=== PATIENT | male | born 1955 | race Caucasian/White ===

== ENCOUNTER 2023-08-07 10:19 | Day surgery (SDC) | payer MEDICARE, SELFPAY ==
[2023-07-25 14:51] VITALS: BMI 31.6
--- NOTE | 2023-08-06 16:32 | PM.HPGS ---
History of Present Illness History of Present Illness Consent: Risks, benefits, and alternatives have been discussed and questions answered. Patient agrees to proceed with procedure. Chief complaint: Personal History of Polyps Narrative: Soto Mark is a 68 year old male who is referred for colon cancer screening. He had 2 polyps removed in 2016. Review of Systems Review of Systems: All systems reviewed & are unremarkable except as noted in HPI and below PMFSH Past Medical History Medical History Diabetes type 2, controlled Diverticulosis Hyperlipidemia Hypertension Surgical History Surgical History History of cervical spinal surgery History of cholecystectomy History of total bilateral knee replacement Social History Social History Smoking status: Former smoker Tobacco type: cigarettes Substance use: current Substance use type: marijuana Other substance usage details: CBD gummies Last use: seldom Living arrangements: with family Spiritual care concerns: No Meds Home Medications and Allergies Home Medications Medication Instructions Recorded Confirmed Type amlodipine 5 mg tablet 5 mg PO DAILY 07/25/23 08/07/23 History citalopram 40 mg tablet 40 mg PO DAILY 07/25/23 08/07/23 History glipizide 10 mg tablet, extended 10 mg PO DAILY 07/25/23 08/07/23 History release 24 hr hydrocodone 10 mg-acetaminophen 1 tablet PO TID PRN Pain 07/25/23 08/07/23 History 325 mg tablet insulin detemir U-100 100 unit/mL 80 unit subcut DAILY 07/25/23 08/07/23 History (3 mL) subcutaneous pen (Levemir FlexPen) losartan 100 mg tablet 100 mg PO DAILY 07/25/23 08/07/23 History meloxicam 15 mg tablet 15 mg PO DAILY 07/25/23 08/07/23 History Allergies Allergy/AdvReac Type Severity Reaction Status Date / Time iodine Allergy Mild Hives / Verified 08/07/23 11:10 Red Face Exam Resp: Auscultation: clear to auscultation bilaterally Cardio: Rate: regular rate Rhythm: regular rhythm GI: GI Palp: Yes Soft to palpation and No Tenderness to palpation present (GI) Assessment and Plan Assessment and plan (1) Personal history of colonic polyps: Code(s): Z86.010 - Personal history of colonic polyps Status: Acute Assessment and Plan: Colonoscopy with possible biopsy or polypectomy or cautery or injection of substances.
--- NOTE | 2023-08-07 07:26 | P.PNAN_ITS ---
Anes - Initial Pre Proc Eval Procedure: Operation Date: 08/07/23 12:30 Proposed Procedures p Diagnostic Colonoscopy - Homero Espinoza MD Date/Time: 08/07/23 07:26 Surgeon: Homero Espinoza MD Pre Op Diagnosis: Personal History of Polyps Patient Data Age: 68 Gender: M Height: 1.78 m Weight: 100 kg Allergies Allergy/AdvReac Type Severity Reaction Status Date / Time iodine Allergy Mild Hives / Verified 08/07/23 11:10 Red Face Home Medications Medication Instructions Recorded Confirmed Type amlodipine 5 mg tablet 5 mg PO DAILY 07/25/23 08/07/23 History citalopram 40 mg tablet 40 mg PO DAILY 07/25/23 08/07/23 History glipizide 10 mg tablet, extended 10 mg PO DAILY 07/25/23 08/07/23 History release 24 hr hydrocodone 10 mg-acetaminophen 1 tablet PO TID PRN Pain 07/25/23 08/07/23 History 325 mg tablet insulin detemir U-100 100 unit/mL 80 unit subcut DAILY 07/25/23 08/07/23 History (3 mL) subcutaneous pen (Levemir FlexPen) losartan 100 mg tablet 100 mg PO DAILY 07/25/23 08/07/23 History meloxicam 15 mg tablet 15 mg PO DAILY 07/25/23 08/07/23 History Patient hx anesthesia problems: none Family hx anesthesia problems: none Results Review: All pre-operative results and documents have been reviewed as part of the pre- operative evaluation. [facility] Past Medical History Medical History Diabetes type 2, controlled Diverticulosis Hyperlipidemia Hypertension Surgical History Surgical History History of cervical spinal surgery History of cholecystectomy History of total bilateral knee replacement Social History Social History Smoking status: Former smoker Tobacco type: cigarettes Substance use: current Substance use type: marijuana Other substance usage details: CBD gummies Last use: seldom Living arrangements: with family Spiritual care concerns: No Anes - Eval Final PreProcedure Day of Procedure 08/07/23 07:26 Patient weight: obese Heart: regular rate and rhythm Lungs: clear to auscultation Airway: Mallampati scale class II Neurological: alert and oriented Last oral intake: >/= 8 hours ASA classification: III Emergent: no Anesthetic plan: proceed Anesthesia type and monitoring: general GIVS and standard monitoring Results Review: All pre-operative results and documents have been reviewed as part of the pre- operative evaluation. Informed Consent: The patient's anesthetic plan and its attendant risks and benefits were discussed with the patient/family/POA. Questions were solicited and answers provided to the satisfaction of the patient/family/POA.
[2023-08-07 11:13] VITALS: BP 146/82; PULSE 69; RESP 14; TEMP 36.6; O2SAT 97
[2023-08-07] MEDS: LACTATED RINGERS 1,000 ML 150 ML IV CONT (11:27)
[2023-08-07 11:33] LABS: Glucose Point of Care 166 mg/dl (65-105)
--- NOTE | 2023-08-07 11:35 | SUR.PREOP ---
Dr. Vanegas notified of pt's blood sugar in pre-op 166, no new orders at this time.
[2023-08-07 12:54] VITALS: BP 104/62; PULSE 67; RESP 14; O2SAT 94
--- NOTE | 2023-08-07 13:01 | WPDANESPN ---
Anes - Prog Note Post-Op Date/Time: 08/07/23 13:01 Cardiovascular status: normal Respiratory status: normal Airway patency: baseline Mental status: baseline Post-Op hydration status: normal Vital Signs: Last Vital Signs Temp 36.6 C 08/07/23 11:13 Pulse 67 08/07/23 12:54 Resp 14 08/07/23 12:54 BP 104/62 08/07/23 12:54 Pulse Ox 94 08/07/23 12:54 O2 Del Method Room Air 08/07/23 12:54 Pain Score (VAS): 0 I/O: Intake & Output 08/06/23 08/07/23 08/07/23 23:59 07:59 15:59 Intake Total 500 Balance 500 08/07/23 11:22 POC Capillary Glucose 166 H Post-procedural complaints: none Patient Feedback: Patient satisfied with anesthetic care. Other Findings: Patient vital signs back to baseline. Patient denies nausea and vomiting. Patient's pain under control. Patient OK for discharge.
[2023-08-07 13:05] VITALS: BP 122/77; PULSE 64; RESP 18; O2SAT 98
[2023-08-07 13:15] VITALS: BP 132/75; PULSE 60; RESP 18; O2SAT 98
== END 2023-08-07 13:30 | disposition home or self-care (01) ==
PROVIDERS: PCP Family Medicine; Visit Provider Internal Medicine Gastroenterology
PROC: 0DJD8ZZ Inspection of Lower Intestinal Tract, Via Natural or Artificial Opening Endoscopic (ICD-10-PCS; CPT 45378; principal; 2023-08-07 12:30)
DX: Z86.010 Personal history of colon polyps (principal); K57.30 Diverticulosis of large intestine without perforation or abscess without bleeding; K64.8 Other hemorrhoids
CPT/HCPCS: 45378